=== PATIENT | female | born 1945 | race Caucasian/White ===

== ENCOUNTER 2021-01-17 14:52 | Inpatient (IN) | payer MEDICARE, OTHER ==
[~2021-01-17] VITALS: Ht 172.7 cm; Wt 91.6 kg
[2021-01-17 15:39] LABS: HEMOGLOBIN 13.2 gm/dl (12.3-15.3); RED BLOOD COUNT 4.61 M/UL (4.00-5.10); WHITE BLOOD COUNT 11.9 K/UL (4.5-11.0)
[2021-01-17 16:08] LABS: BUN/CREATININE RATIO 25 (0-10)
--- NOTE | 2021-01-17 20:01 | NUR ---
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 THE PATIENT STATED NO. I ASKED HER IF ANY OF HER FAMILY AT HOME WOULD POSSIBLY KNOW HER MEDICINE AND SHE STATED THAT THEY PROBABLY WOULDN'T. I CALLED ALEJANDRA RIVERA, DAUGHTER, HER EMERGENCY CONTACT AND SPOKE WITH HER. ALEJANDRA STATED SHE DID NOT KNOW THE NAMES OF THE MEDICINE THAT SHE TOOK. I ASKED IF SHE WOULD BE ABLE TO BRING IN THE MEDICINE TOMORROW AT SOME POINT SO WE COULD DO A MED REC. ALEJANDRA STATED SHE MIGHT BE ABLE TO COME, BUT SHE WAS UNSURE IF SHE WOULD BE ABLE TO.
[2021-01-18 03:12] LABS: HEMOGLOBIN 11.6 gm/dl (12.3-15.3)
[2021-01-18 03:13] LABS: RED BLOOD COUNT 4.09 M/UL (4.00-5.10); WHITE BLOOD COUNT 8.9 K/UL (4.5-11.0)
[2021-01-18 03:36] LABS: BUN/CREATININE RATIO 26 (0-10)
[2021-01-18] MEDS ORDERED: ASPIRIN EC81 MG PO (11:05)
[2021-01-18] MEDS ORDERED: FENOFIBRATE160 MG PO (11:06)
[2021-01-18] MEDS ORDERED: LISINOPRIL40 MG PO (11:07)
[2021-01-18] MEDS ORDERED: GLUCOPHAGE 500500 MG PO (11:07)
[2021-01-18] MEDS ORDERED: LOSARTAN POTAS100 MG PO (11:07)
[2021-01-18] MEDS ORDERED: CRESTOR40 MG PO (11:08)
[2021-01-18] MEDS ORDERED: NIFEDIPINE ER60 M1 PO (11:08)
[2021-01-18] MEDS ORDERED: VITAMIN D325 MCG PO (11:09)
[2021-01-18] MEDS ORDERED: VITAMIN B-12500 MCG PO (11:09)
[2021-01-18] MEDS ORDERED: HYDROCODON-ACE1 EAC2 PO (11:10)
[2021-01-18] MEDS ORDERED: HYDROCODON-ACE1 EAC6 PO (14:42)
[2021-01-18] MEDS ORDERED: LOVENOX30 MG/0.3 SQ (14:42)
[2021-01-19 05:31] LABS: WHITE BLOOD COUNT 10.2 K/UL (4.5-11.0)
[2021-01-19 05:38] LABS: HEMOGLOBIN 8.4 gm/dl (12.3-15.3); RED BLOOD COUNT 2.97 M/UL (4.00-5.10)
[2021-01-20 02:48] LABS: HEMOGLOBIN 8.1 gm/dl (12.3-15.3); RED BLOOD COUNT 2.85 M/UL (4.00-5.10); WHITE BLOOD COUNT 10.5 K/UL (4.5-11.0)
[2021-01-20] MEDS ORDERED: HYDRALAZINE HCL25 MG PO (10:36)
[2021-01-20] MEDS ORDERED: FERROUS GLUCON324 M1 PO (12:03)
[2021-01-21 03:30] LABS: HEMOGLOBIN 8.3 gm/dl (12.3-15.3); RED BLOOD COUNT 2.9 M/UL (4.00-5.10); WHITE BLOOD COUNT 10.2 K/UL (4.5-11.0)
[2021-01-21] MEDS ORDERED: MACROBID 100 M100 MG PO (09:26)
--- NOTE | 2021-01-21 16:56 | NUR ---
PATIENT REFUSED TO EAT HER MEAL. INFORMED HER THE IMPORTANCE OF EATING HER MEAL. SHE CONTINUES TO REFUSED
== END 2021-01-21 17:19 | disposition home or self-care (01) | DRG 481 ==
LOC: ER1 14:52 → M/S 16:02 → CDU 16:02 → M/S 18:17
PROVIDERS: Orthopaedic Surgery; Physician Assistant; ADMIT Family Medicine
PROC: 0QSB06Z Reposition Right Lower Femur with Intramedullary Internal Fixation Device, Open Approach (ICD-10-PCS; principal; 2021-01-17)
DX: S72.401A Unspecified fracture of lower end of right femur, initial encounter for closed fracture (principal); I69.351 Hemiplegia and hemiparesis following cerebral infarction affecting right dominant side; J98.11 Atelectasis; B96.89 Other specified bacterial agents as the cause of diseases classified elsewhere; N39.0 Urinary tract infection, site not specified; R50.9 Fever, unspecified; W01.0XXA Fall on same level from slipping, tripping and stumbling without subsequent striking against object, initial encounter; G35 Multiple sclerosis; R26.9 Unspecified abnormalities of gait and mobility; Z20.822 Contact with and (suspected) exposure to COVID-19; E53.8 Deficiency of other specified B group vitamins; E11.9 Type 2 diabetes mellitus without complications; I10 Essential (primary) hypertension; E78.5 Hyperlipidemia, unspecified; E55.9 Vitamin D deficiency, unspecified; Z98.42 Cataract extraction status, left eye; E87.6 Hypokalemia; D72.829 Elevated white blood cell count, unspecified; D50.9 Iron deficiency anemia, unspecified; Z79.01 Long term (current) use of anticoagulants; Z86.718 Personal history of other venous thrombosis and embolism; Z91.81 History of falling; Z98.41 Cataract extraction status, right eye; Y92.008 Other place in unspecified non-institutional (private) residence as the place of occurrence of the external cause; Z88.5 Allergy status to narcotic agent; Z88.0 Allergy status to penicillin; Z82.3 Family history of stroke; Z83.3 Family history of diabetes mellitus; Z82.49 Family history of ischemic heart disease and other diseases of the circulatory system; Z90.49 Acquired absence of other specified parts of digestive tract; Z79.82 Long term (current) use of aspirin; Z79.899 Other long term (current) drug therapy
CPT/HCPCS: 36415; 51702; 71045; 73502; 73552; 76000; 80048; 80053; 81001; 82962; 83540; 83550; 85025; 85027; 85610; 86850; 86900; 86901; 87077; 87086; 87186; 93005; 96372; 96374; 96375; 96376; 97110-GP-CQ; 97162; 97166; 97530-GP-CQ; 97535; 99285; C1713; J0171; J0360; J1100; J1650; J1885; J2270; J2405; J2704; J2795; J3010; J7030; J7040; J7120; U0002